=== PATIENT | female | born 1990 | race Caucasian/White ===

== ENCOUNTER → 2017-08-15 | Outpatient (CLI) | payer OTHER ==
[~2017-08-15] MED LIST: BUPR-474 PO; CALC500T6 PO; DEXL30CA5 PO; DICL-195 PO; DICY20TA70 PO; DULO60CA7; EPIN0.3P14 IM; ESC10 PO; ETON68IM SQ; FEXO180T74 PO; HYDR-3140 PO; HYDR-385 PO; HYDR-4225 PO; HYOS0.128 PO; IBU800 PO; KET10 PO; LACT1CAP6 PO; LOR5/325 PO; MECL25TA9 PO; MED150I IM; METH18TA12 PO; NAP500; OMEP-218 PO; ONDA4TAB PO; PRE20 PO; TETR-30 PO; TOPI25CA9 PO; ZINC30CA2 PO
--- NOTE | 2017-08-15 12:43 | RADIOLOGY IMAGING REPORT ---
[place] [facility] [place] NAME: Juliet Jean : 1990 MR: [id number] V: [id number] EXAM DATE: ORDERING PHYSICIAN: AYALA AUGUSTIN TECHNOLOGIST: Location: [facility] - [place] Patient: Juliet Jean : 1990 Visit/Account:[id number] Date of Sevice: 08/15/2017 EXAMINATION: CT of the Paranasal Sinuses HISTORY: Chronic sinus symptoms TECHNIQUE: CT was performed through the paranasal sinuses without intravenous contrast administratio n. Coronal and sagittal reformatted images were generated. One of the following dose optimization techniques was utilized in the performance of this exam: autom ated exposure control; adjustment of the mA and/or kV according to patient size; or use of iterative reconstruction technique. Specific details can be referenced in the facility's radiology CT exam ope rational policy. COMPARISON: None. FINDINGS: Clear mastoid air cells and middle ear cavities. Mild to moderate bilateral maxillary sinus mucosal thickening. Mild sphenoid sinus mucosal thickening . The infundibula are opacified by mucosal thickening. No nasal cavity polyp. Slight rightward nasal septum deviation. Normal temporomandibular joints. The visible extracranial and intracranial structures are normal. IMPRESSION: Mild to moderate maxillary sinus and mild sphenoid sinus mucosal thickening. No paranasal sinus fluid. Report Dictated By: Leighton Anne MD at 08/15/2017 12:36 PM Report E-Signed By: Leighton Anne MD at 08/15/2017 12:40 PM WSN:[email or web address]
== END ==
LOC: CT 01:27
PROVIDERS: ATTEND Otolaryngology
DX: J34.89 Other specified disorders of nose and nasal sinuses (principal); J34.2 Deviated nasal septum
CPT/HCPCS: 70486

== ENCOUNTER → 2017-08-17 | Outpatient (CLI) | payer OTHER | LOC: LAB 16:09 | PROVIDERS: ATTEND Otolaryngology | DX: J30.9 Allergic rhinitis, unspecified (principal) ==

== ENCOUNTER → 2017-09-15 | Outpatient (CLI) | payer OTHER ==
--- NOTE | 2017-09-15 12:16 | RADIOLOGY IMAGING REPORT ---
FACILITY: [facility] - [place] PATIENT NAME: Juliet Jean : 1990 MR: [id number] V: [id number] EXAM DATE: ORDERING PHYSICIAN: MK WIN TECHNOLOGIST: Location: [facility] Patient: Juliet Jean : 1990 Visit/Account:[id number] Date of Sevice: 09/15/2017 BRAIN W/O CONTRAST ADDITIONAL PERTINENT HISTORY: Migraine with aura COMPARISON STUDIES: None. TECHNIQUE: Multi-planar, multi-sequence brain MRI was performed without IV contrast administration. FINDINGS: Ventricles / sulci / fissures: Negative. Masses / hemorrhage / midline shift: Negative. Intra-axial: negative Extra-axial fluid collections: Negative. Intracranial vasculature and dural sinuses: Negative. Skull base / calvarium: Negative. Visualized mastoid air cells / paranasal sinuses: There Is mild mucosal thickening in the maxillary a nd ethmoid sinuses Orbits: Negative. Scalp: Negative Upper neck:Negative. IMPRESSION: Mild mucosal thickening in the maxillary and ethmoid sinuses Report Dictated By: Jeri Chacko MD at 09/15/2017 12:08 PM Report E-Signed By: Jeri Chacko MD at 09/15/2017 12:11 PM WSN:[email or web address]
== END ==
LOC: MRI 09-13 01:19
PROVIDERS: ATTEND Psychiatry & Neurology Neurology
DX: J32.2 Chronic ethmoidal sinusitis (principal); J32.0 Chronic maxillary sinusitis
CPT/HCPCS: 70551

== ENCOUNTER 2017-10-03 02:52 | Day surgery (SDC) | payer OTHER ==
[~2017-10-03] VITALS: Ht 167.6 cm; Wt 65.8 kg
[~2017-10-03 02:52] MED LIST changes: +AMIT-104 PO; +CA C1TAB3 PO; +DICL-192 PO; +DULO60CA7 PO
[2017-10-03] MEDS ORDERED: METOCLOPRAMIDE 10 MG/2 ML SDV ONE (06:48)
[2017-10-03] MEDS ORDERED: LIDOCAINE MPF 1% 5 ML VIAL ONE (06:48)
[2017-10-03] MEDS ORDERED: ONDANSETRON 4 MG/2 ML VIAL ONE (06:48)
[2017-10-03] MEDS ORDERED: PROPOFOL EMUL(*) 10MG/ML 20 ML 20 ML ONE (06:48)
[2017-10-03] MEDS ORDERED: DEXAMETHASONE SOD 4 MG/ML VIAL ONE (06:49)
[2017-10-03 11:00] VITALS: BP 123/88
[2017-10-03] MEDS ORDERED: fentaNYL CITR 100 MCG/2 ML AMP ONE ×2 (11:15→13:05)
[2017-10-03] MEDS ORDERED: ceFAZolin(*) 2GM/D5W 50ML 50 ML IVPB ONE (11:20)
[2017-10-03] MEDS ORDERED: LIDOCAINE/SOD BICARB 8.4% SYR ID ONE (11:55)
[2017-10-03] MEDS ORDERED: FAMOTIDINE 20 MG TAB PO ONE (11:55)
[2017-10-03] MEDS ORDERED: NORMOSOL R SOLN(*) 1000 ML BAG 1,000 ML IV PRN (11:55)
[2017-10-03] MEDS ORDERED: MIDAZOLAM 2 MG/2 ML VIAL IVP PRN (11:55)
[2017-10-03] MEDS ORDERED: OXYMETAZOLINE SPRAY 15 ML BTL ONE (12:10)
[2017-10-03] MEDS ORDERED: LIDO/EPI 1% MDV 1:100,000 20ML INFIL ONE (12:10)
[2017-10-03] MEDS ORDERED: NS(*) 0.9% 250 ML BAG 250 ML ONE (12:22)
[2017-10-03] MEDS ORDERED: HYDR-4309 PO (13:35)
[2017-10-03] MEDS ORDERED: CEFU500T10 PO (13:36)
[2017-10-03 13:56] VITALS: BP 124/86
[2017-10-03 14:00] VITALS: BP 131/88
[2017-10-03 14:03] VITALS: BP 132/87
[2017-10-03] MEDS ORDERED: APAP/HYDROCODONE 325/5 TAB ONE (14:19)
--- NOTE | 2017-10-04 11:58 | OPERATIVE REPORT 1 ---
EVENT DATE: October 03, 2017 SURGEON: Don Marcial MD ANESTHESIOLOGIST: Delon Patel M.D. ANESTHESIA: LMA PROCEDURE Bilateral maxillary antrostomies. PREOPERATIVE DIAGNOSIS Bilateral chronic maxillary sinusitis. POSTOPERATIVE DIAGNOSIS Bilateral chronic maxillary sinusitis. INDICATIONS Please refer to the preoperative note. PROCEDURE The patient was positively identified in the preoperative area. She was accompanied there by her father. Risks were again explained, including but not limited to bleeding, infection, injury to the orbit, vision changes, and those associated with anesthesia. She acknowledged understanding of those risks. She was then brought back to the operative suite, laid supine on the operative table, and anesthesia was administered. Once asleep, the patient was positioned and prepped and draped in usual sterile fashion. The nose was initially decongested by placing cottonoids containing Afrin solution in the bilateral nasal cavities. These were subsequently removed. I began on the right side. A nasal endoscopy was performed. This was notable for a large mid septal perforation. Approximately 0.5 mL of 1% lidocaine with epinephrine was infiltrated into the lateral nasal wall. An uncinectomy was then performed. The natural maxillary ostium was identified. This was widened with a microdebrider and back biting forceps. I then proceeded with the contralateral side, and in a similar fashion, the cottonoids were removed, approximately 0.5 mL of 1% lidocaine with epinephrine was infiltrated into the lateral nasal wall. An uncinectomy was performed. The natural maxillary ostium was identified and widened with back biting forceps and the microdebrider. Bilateral NasoPore dressing was placed between the middle turbinate and the lateral nasal caba. The patient was then turned to anesthesia for emergence. ESTIMATED BLOOD LOSS 25 mL. COMPLICATIONS No complications. MTDD
== END 2017-10-03 13:56 | disposition home or self-care (01) ==
LOC: OR 02:52
PROVIDERS: ATTEND Otolaryngology
DX: J32.0 Chronic maxillary sinusitis (principal)
CPT/HCPCS: 31256; 81025; J1100; J2001; J2405; J2704; J2765; J3010; J7050; J0690

== ENCOUNTER → 2018-03-15 | Outpatient (CLI) | payer OTHER ==
[~2018-03-15] MED LIST changes: +CEFU500T10 PO; +HYDR-4309 PO
--- NOTE | 2018-03-15 09:54 | EKG ---
FACILITY: [facility] PATIENT NAME: SAIGE MARKHAM : [id number] MR: [id number] V: [id number] EXAM DATE: ORDERING PHYSICIAN: URIEL WALKER TECHNOLOGIST: TIFFANIE Test Reason : MED MANAGEMENT Blood Pressure : / mmHG Vent. Rate : 082 BPM Atrial Rate : 082 BPM P-R Int : 182 ms QRS Dur : 076 ms QT Int : 366 ms P-R-T Axes : 064 082 060 degrees QTc Int : 427 ms Sinus rhythm Question left atrial enlargement No acute appearing changes No previous ECGs available Confirmed by YUDELKA KHAN ([id number]) on 03/15/2018 11:48:19 AM Referred By: JOSE Confirmed By:YUDELKA KHAN
== END ==
LOC: RESP 09:33
PROVIDERS: ATTEND Nurse Practitioner Family
DX: Z79.899 Other long term (current) drug therapy (principal)
CPT/HCPCS: 93005

== ENCOUNTER → 2018-09-12 | Outpatient (CLI) | payer BC ==
[~2018-09-12] MED LIST changes: -HYDR-4309 PO; +HYDR-653 PO
== END ==
LOC: RESP 02:50
PROVIDERS: ATTEND Psychiatry & Neurology Neurology
DX: G47.30 Sleep apnea, unspecified (principal)

== ENCOUNTER → 2018-10-11 | Outpatient (CLI) | payer BC | LOC: LAB 14:17 | PROVIDERS: ATTEND Psychiatry & Neurology Neurology | DX: E03.9 Hypothyroidism, unspecified (principal) | CPT/HCPCS: 36415; 84436; 84439; 84443; 84480; 84481 ==

== ENCOUNTER → 2018-12-28 | Outpatient (CLI) | payer BC | LOC: LAB 13:41 | PROVIDERS: ATTEND Psychiatry & Neurology Neurology | DX: E03.9 Hypothyroidism, unspecified (principal); E55.9 Vitamin D deficiency, unspecified | CPT/HCPCS: 36415; 82306; 84436; 84439; 84443; 84480; 84481 ==

== ENCOUNTER → 2019-02-26 | Outpatient (CLI) | payer BC | LOC: LAB 15:24 | PROVIDERS: ATTEND Psychiatry & Neurology Neurology | DX: E03.9 Hypothyroidism, unspecified (principal) | CPT/HCPCS: 36415; 82306; 84436; 84443; 84481 ==